=== PATIENT | female | born 1965 | race Hispanic/Latino ===

== ENCOUNTER 2019-12-11 11:17 | Outpatient (CLI) | payer SELFPAY ==
--- NOTE | 2019-12-11 12:54 | XRay Report ---
RIGHT ANKLE 3 VIEWS INDICATION / CLINICAL INFORMATION: RIGHT ANKLE PAIN. COMPARISON: None available. FINDINGS: No significant skeletal abnormality Signer Name: Wojciech Hein MD FACR Signed: 12/11/2019 12:49 PM Workstation Name: [id number]
--- NOTE | 2019-12-11 12:54 | XRay Report ---
RIGHT KNEE 3 VIEWS INDICATION / CLINICAL INFORMATION: RIGHT KNEE PAIN. COMPARISON: None available. FINDINGS: No significant skeletal abnormality Signer Name: Wojciech Hein MD FACR Signed: 12/11/2019 12:49 PM Workstation Name: [id number]
== END 2019-12-11 11:18 | disposition home or self-care (01) ==
LOC: XRAY 11:17
PROVIDERS: ATTEND Internal Medicine
DX: M25.561 Pain in right knee (principal); M25.571 Pain in right ankle and joints of right foot